=== PATIENT | male | born 1970 | race Hispanic/Latino ===

== ENCOUNTER 2020-11-11 23:03 | Emergency (ER) | payer OTHER ==
[~2020-11-11] VITALS: Ht 172.7 cm; Wt 113.4 kg
[2020-11-11 23:06] VITALS: BP 141/91
[2020-11-12 05:31] LABS: BASOPHILS % (AUTO) 0.4 % (0.0-5.0); EOSINOPHILS % (AUTO) 2.7 % (0.0-8.0); HEMATOCRIT 45.1 % (42-54); LYMPHOCYTES % (AUTO) 12.5 % (21.0-51.0); MEAN CORPUSCULAR HEMOGLOBIN 29.4 pg (27.0-33.0); MEAN CORPUSCULAR VOLUME 89.1 fL (79-99); MONOCYTES % (AUTO) 8.3 % (3.0-13.0); NEUTROPHILS % (AUTO) 75.9 % (40.0-77.0); PLATELET COUNT (AUTO) 217 K/uL (130-400); RED BLOOD CELL COUNT(AUTO) 5.06 MIL/uL (4.50-6.20); RED CELL DISTRIBUTION WIDTH 13.3 % (11.0-15.5); WHITE BLOOD COUNT (AUTO) 12.2 K/uL (4.8-10.8)
[2020-11-12 05:52] LABS: BILIRUBIN,TOTAL 0.7 mg/dL (0.2-1.0); TOTAL PROTEIN, SERUM 8.1 g/dL (6.0-8.3)
[2020-11-12 06:57] VITALS: BP 122/77
[2020-11-12] MEDS ORDERED: POTA20PA32 PO (08:30)
[2020-11-12] MEDS ORDERED: SULF1TAB42 PO (08:30)
[2020-11-12] MEDS ORDERED: FURO20TA6 PO (08:30)
[2020-11-12] MEDS ORDERED: CEPH500B PO (08:30)
[2020-11-12] MEDS: KCL 20 MEQ ERTAB PO SCH ×2 (09:01→09:03)
[2020-11-12] MEDS: FUROSEMIDE 20MG VIAL IV SCH ×2 (09:01→09:02)
[2020-11-12 09:19] VITALS: BP 123/78
== END 2020-11-12 09:20 ==
LOC: EDH 23:03
DX: L03.116 Cellulitis of left lower limb (principal); I10 Essential (primary) hypertension; Z79.899 Other long term (current) drug therapy
CPT/HCPCS: 36415; 80053; 85025; 93970; 96374; 99284; J1940